=== PATIENT | female | born 1985 | race African-American/Black ===

== ENCOUNTER 2022-12-06 11:24 | Emergency (ER) | payer BC, OTHER ==
[~2022-12-06] VITALS: Ht 160 cm; Wt 98.8 kg
[2022-12-06 11:24] VITALS: BP 136/85; PULSE 109; RESP 18; O2SAT 96
[2022-12-06 12:16] LABS: Urine Bacteria NONE SEEN /hpf (None Seen); Urine Blood Negative /uL (Negative); Urine Clarity Clear (Clear); Urine Color Yellow (Yellow); Urine Protein, UAD Negative (Negative); Urine Urobilinogen Normal (Negative); Urine WBC <1 /hpf (0 - 5); Urine pH 6.5 (5.0-8.0)
== END 2022-12-06 14:21 | disposition left against medical advice (07) ==
LOC: ER 11:24
DX: R10.31 Right lower quadrant pain (principal); Z53.21 Procedure and treatment not carried out due to patient leaving prior to being seen by health care provider
CPT/HCPCS: 81001